=== PATIENT | female | born 2000 | race Two or more races ===

== ENCOUNTER 2021-10-19 20:15 | Emergency (ER) | payer BC ==
[~2021-10-19] VITALS: Ht 165.1 cm; Wt 86.2 kg
[2021-10-19 20:26] VITALS: BP 131/80
[2021-10-19] MEDS ORDERED: PRED50TA PO (20:41)
[2021-10-19] MEDS ORDERED: DIPH25CA83 PO (20:41)
[2021-10-19] MEDS ORDERED: FAMO-131 PO (20:41)
[2021-10-19] MEDS ORDERED: diphenhydrAMINE HCL 50 MG CAPSULE ONE (20:49)
[2021-10-19] MEDS ORDERED: FAMOTIDINE (20 MG) 20 MG TABLET ONE (20:49)
[2021-10-19] MEDS ORDERED: predniSONE 20 MG TABLET ONE (20:49)
[2021-10-19] MEDS ORDERED: diphenhydrAMINE HCL 50 MG CAPSULE PO ONE (21:00)
[2021-10-19] MEDS ORDERED: FAMOTIDINE (20 MG) 20 MG TABLET PO ONE (21:00)
[2021-10-19] MEDS ORDERED: predniSONE 10 MG TABLET PO ONE (21:00)
== END 2021-10-19 20:56 | disposition home or self-care (01) ==
LOC: ER 20:27
DX: T78.3XXA Angioneurotic edema, initial encounter (principal); Z79.899 Other long term (current) drug therapy
CPT/HCPCS: 99284; J7512 ×2; Q0163

== ENCOUNTER 2025-05-01 23:19 | Emergency (ER) | payer BC, OTHER ==
[~2025-05-01] VITALS: Ht 165.1 cm; Wt 95.3 kg
[~2025-05-01 23:19] MED LIST: DIPH25CA83 PO; FAMO-131 PO; PRED50TA PO
[2025-05-01] MEDS ORDERED: ONDANSETRON HCL/PF 4 MG/2 ML VIAL ONE (23:49)
[2025-05-01] MEDS ORDERED: LIDOCAINE VISCOUS 2% UD 15 ML UDC ONE (23:50)
[2025-05-01] MEDS ORDERED: MAG HYDROX/AL HYDROX/SIMETH 30 ML UDC ONE (23:50)
[2025-05-01 23:56] LABS: APPEARANCE,URINE SLIGHTLY CLOUDY (CLEAR); BLOOD, URINE NEGATIVE Ery/uL (NEGATIVE); LEUKOCYTE ESTERASE ,URINE 2+ (NEGATIVE); NITRITE, URINE POSITIVE (NEGATIVE); UGLUCOSE NEGATIVE (NEGATIVE)
[2025-05-02] MEDS: IV NS 0.9% 500 ML BAG IV ONE (00:06)
[2025-05-02] MEDS: MAG HYDROX/AL HYDROX/SIMETH 30 ML UDC PO ONE (00:06)
[2025-05-02] MEDS: ONDANSETRON HCL/PF 4 MG/2 ML VIAL IVP ONE (00:06)
[2025-05-02] MEDS: LIDOCAINE VISCOUS 2% UD 15 ML UDC MM ONE (00:06)
[2025-05-02 00:08] LABS: PLATELET COUNT (AUTO) 251 K/uL (150-450); RED BLOOD CELL COUNT(AUTO) 4.47 MIL/uL (4.0-5.2); RED CELL DISTRIBUTION WIDTH 13.2 % (11.5-15.0); WHITE BLOOD COUNT (AUTO) 11.2 K/uL (4.3-11.0)
[2025-05-02 00:19] LABS: ADD URINE CULTURE YES; SQUAMOUS EPITHELIAL CELL,UR Moderate /HPF (None Seen)
[2025-05-02 00:25] LABS: ASPARTATE AMINOTRANSFERASE 17.0 U/L (15-37); CALCIUM, SERUM 9.2 mg/dL (8.5-10.1); CREATININE 0.7 mg/dL (0.6-1.3); SODIUM SERUM 137.0 mmol/L (136-145); TOTAL PROTEIN, SERUM 7.3 g/dL (6.4-8.2); UREA NITROGEN, BLOOD 6.0 mg/dL (7-18)
[2025-05-02] MEDS ORDERED: NITR100C6 PO (01:10)
[2025-05-02] MEDS ORDERED: NITROFURANTOIN/MONOHYDRATE MACROCRYSTALS 100 MG CAPSULE ONE (01:12)
[2025-05-02] MEDS: NITROFURANTOIN/MONOHYDRATE MACROCRYSTALS 100 MG CAPSULE PO ONE (01:18)
[2025-05-02 01:57] VITALS: BP 109/73; TEMP 98.2; O2SAT 98
== END 2025-05-02 01:57 | disposition home or self-care (01) ==
LOC: ER 23:25
DX: O23.40 Unspecified infection of urinary tract in pregnancy, unspecified trimester (principal); R10.84 Generalized abdominal pain; Z79.52 Long term (current) use of systemic steroids; Z79.899 Other long term (current) drug therapy
CPT/HCPCS: 99285; 96374; 76705; 93005; 85025; 80048; 83690; 80076; 81001; 36415; 84484; 87086; J2405; J7040